=== PATIENT | male | born 1985 | race Caucasian/White ===

== ENCOUNTER 2021-04-26 17:28 | Emergency (ER) | payer MEDICAID ==
[~2021-04-26] VITALS: Ht 190.5 cm; Wt 90.9 kg
--- NOTE | 2021-04-26 17:35 | NUR ---
[facility] STATES PT SLAMMED LEFT MIDDLE FINGER IN DOOR ON SATRURDAY NIGHT AND CUT THE TIP OFF. TODAY PT TOOK OUT SUTURES AND PT BIT IT OFF 3RD TIME HERE ONE TIME FROM DOOR SLAMMED THIS IS SECOND TIME FROM BITTING OFF SUTURES.
[2021-04-26] MEDS ORDERED: OLANZAPINE ODT 10MG PO ONE (18:00)
[2021-04-26] MEDS ORDERED: PLEASE ENTER ALLERGIES MC SCH (18:00)
[2021-04-26] MEDS ORDERED: QUETIAPINE 100MG TABLET PO ONE (18:00)
--- NOTE | 2021-04-26 18:00 | NUR ---
PROVIDER DR FISHER AWARE OF PSYCH SCREEN, NO NEW ORDERS AT THIS TIME.
[2021-04-26] MEDS ORDERED: NEOSPORIN OINT. PKT 1 PACKET ONE (18:18)
[2021-04-26] MEDS ORDERED: QUETIAPINE 100MG TABLET ONE (18:22)
--- NOTE | 2021-04-26 18:28 | NUR ---
TECH CLEANING AND WRAPPING WOUND
[2021-04-26 18:53] VITALS: BP 124/81
--- NOTE | 2021-04-26 18:56 | NUR ---
DEPUTY NOTIFIED OF SI IDEATION OF PATIENT AND MENTIONED THAT THE PATIENT IS ON SUICIDE WATCH. Patient/Caregiver given discharge instructions and they have confirmed that they understand the instructions. Patient ambulatory with steady gait. No questions at time of discharge.
--- NOTE | 2021-04-26 18:57 | NUR ---
DEPUTY MENTIONED THAT THE PT STATED THAT THEY DONT GIVE SEROQUEL AT THE [facility] AND THE PT MENTIONED THAT HE WANTED SEROQUEL PRIOR TO BITTING OF BANDAGE AND COMING TO HOSPITAL.
== END 2021-04-26 19:02 | disposition home or self-care (01) ==
LOC: ED 17:58
DX: T81.30XA Disruption of wound, unspecified, initial encounter (principal); F20.89 Other schizophrenia
CPT/HCPCS: 99283